=== PATIENT | male | born 1985 | race Caucasian/White ===

== ENCOUNTER 2017-02-08 18:18 | Emergency (ER) | payer BC ==
[~2017-02-08] VITALS: Ht 172.7 cm; Wt 66.8 kg
[~2017-02-08 18:18] MED LIST: ZITHTAB PO
[2017-02-08 18:34] VITALS: BP 147/78; PULSE 94; RESP 18; TEMP 97.5; O2SAT 98
[2017-02-08] MEDS ORDERED: SODIUM CHLOR 0.9% 1000 ML INJ 1,000 ML IV SCH (19:01)
[2017-02-08] MEDS ORDERED: SODIUM CHLORIDE 0.9% FLUSH 10 ML FLUSH IV FLUSH PRN (19:15)
[2017-02-08] MEDS ORDERED: ONDANSETRON HCL 4 MG/2 ML VIAL IVP ONE (19:15)
[2017-02-08 19:20] LABS: AUTOMATED NEUTROPHIL # 14.9 TH/MM3 (1.8-7.7); BASOPHIL # 0.1 TH/MM3 (0-0.2); BASOPHIL % 0.3 % (0.0-2.0); EOSINOPHIL % 0.2 % (0.0-4.0); HEMATOCRIT 49.2 % (39.0-51.0); LYMPH % 7.3 % (9.0-44.0); LYMPHOCYTE # 1.3 TH/MM3 (1.0-4.8); MEAN CELL VOLUME 85.5 FL (80.0-100.0); MEAN CORPUSCULAR HEMOGLOBIN 29.4 PG (27.0-34.0); MEAN CORPUSCULAR HGB CONC 34.3 % (32.0-36.0); NEUT % 87.2 % (16.0-70.0); PLATELET COUNT 264 TH/MM3 (150-450); RED BLOOD COUNT 5.75 MIL/MM3 (4.50-5.90); RED CELL DISTRIBUTION WIDTH 12.4 % (11.6-17.2); WHITE BLOOD COUNT 17.1 TH/MM3 (4.0-11.0)
[2017-02-08 19:25] LABS: HEMO FLAGS DIFF FINAL
[2017-02-08 19:27] LABS: CHLORIDE 103 MEQ/L (98-107); POTASSIUM 3.7 MEQ/L (3.5-5.1); SODIUM (NA) 139 MEQ/L (136-145)
[2017-02-08 19:31] LABS: ANION GAP 11 MEQ/L (5-15); BICARBONATE 25.4 MEQ/L (21.0-32.0); BLOOD UREA NITROGEN 15 MG/DL (7-18)
[2017-02-08 19:34] LABS: ALT (GPT) 28 U/L (12-78); AST (GOT) 24 U/L (15-37)
[2017-02-08 19:35] LABS: GLOMERULAR FILTRATION RATE 70 ML/MIN (>89)
[2017-02-08 19:36] LABS: TOTAL BILIRUBIN ADULT 1.9 MG/DL (0.2-1.0)
[2017-02-08 19:37] LABS: ALKALINE PHOSPHATASE 71 U/L (45-117)
[2017-02-08] MEDS ORDERED: KETOROLAC TROMETHAMINE 30 MG/ML (IVP) VIAL IV PUSH ONE (20:15)
[2017-02-08] MEDS ORDERED: CLAR10CA3 PO (20:57)
[2017-02-08] MEDS ORDERED: ZOFR4TAB3 SL (20:57)
[2017-02-08] MEDS ORDERED: CEPH-460 PO (20:57)
--- NOTE | 2017-02-08 20:57 | PD ---
HPI Chief Complaint: GI Complaint Time Seen by Provider: 19:00 Travel History International Travel<30 days: No Contact w/Intl Traveler<30days: No Traveled to known affect area: No History of Present Illness HPI Patient 31-year-old male presents emergency Department with nausea and vomiting since this afternoon. Patient had been complaining of sore throat and facial pain that his allergies were acting up and has been swallowing a lot of mucus and started with nausea vomiting and diarrhea this afternoon. This is nonbloody and nonbilious. He is denying any fevers. He has not had any abdominal pain. He stated that he took some improvements and Sudafed for his sinus symptoms and was unable to keep the Sudafed down. Symptoms are moderate, gradually worsening. PFSH Past Medical History Hx Anticoagulant Therapy: No Cardiovascular Problems: No Chemotherapy: No Cerebrovascular Accident: No Diabetes: No Diminished Hearing: No Headaches: Yes Respiratory: No Migraines: Yes ?: Not Past Surgical History Hysterectomy: No Social History Alcohol Use: No Tobacco Use: No Substance Use: No Allergies-Medications (Allergen,Severity, Reaction): Coded Allergies: No Known Allergies (Verified , 02/08/13) Reported Meds & Prescriptions Reported Meds & Active Scripts Active Zofran Odt (Ondansetron Odt) 4 Mg Tab 4 Mg SL Q6HR PRN Claritin (Loratadine) 10 Mg Cap 10 Mg PO DAILY 30 Days Keflex (Cephalexin) 500 Mg Cap 500 Mg PO Q6H 7 Days Review of Systems Except as stated in HPI: all other systems reviewed are Neg Physical Exam Narrative GENERAL: Well-developed well-nourished no distress. Actively retching in the emergency department SKIN: Focused skin assessment warm/dry. HEAD: Atraumatic. Normocephalic. EYES: Pupils equal and round. No scleral icterus. No injection or drainage. ENT: No nasal bleeding or discharge. Mucous membranes pink and moist. TMs clear bilaterally, oropharynx clear and moist. NECK: Trachea midline. No JVD. CARDIOVASCULAR: Regular rate and rhythm. No murmur appreciated. RESPIRATORY: No accessory muscle use. Clear to auscultation. Breath sounds equal bilaterally. GASTROINTESTINAL: Abdomen soft, non-tender, nondistended. Hepatic and splenic margins not palpable. MUSCULOSKELETAL: No obvious deformities. No clubbing. No cyanosis. No edema. NEUROLOGICAL: Awake and alert. No obvious cranial nerve deficits. Motor grossly within normal limits. Normal speech. PSYCHIATRIC: Appropriate mood and affect; insight and judgment normal. Data Data Last Documented VS Vital Signs Date Time Temp Pulse Resp B/P (MAP) Pulse Ox O2 Delivery O2 Flow Rate FiO2 02/08/17 18:34 97.5 94 18 147/78 (101) 98 Orders Orders Complete Blood Count With Diff (02/08/17 19:01) Comprehensive Metabolic Panel (02/08/17 19:01) Iv Access Insert/Monitor (02/08/17 19:01) Ecg Monitoring (02/08/17 19:01) Oximetry (02/08/17 19:01) Ondansetron Inj (Zofran Inj) (02/08/17 19:15) Sodium Chlor 0.9% 1000 Ml Inj (Ns 1000 M (02/08/17 19:01) Sodium Chloride 0.9% Flush (Ns Flush) (02/08/17 19:15) Ketorolac Inj (Toradol Inj) (02/08/17 20:15) Urinalysis - C+S If Indicated (02/08/17 20:40) Labs Laboratory Tests Test 02/08/17 19:10 02/08/17 20:50 White Blood Count 17.1 TH/MM3 Red Blood Count 5.75 MIL/MM3 Hemoglobin 16.9 GM/DL Hematocrit 49.2 % Mean Corpuscular Volume 85.5 FL Mean Corpuscular Hemoglobin 29.4 PG Mean Corpuscular Hemoglobin Concent 34.3 % Red Cell Distribution Width 12.4 % Platelet Count 264 TH/MM3 Mean Platelet Volume 9.8 FL Neutrophils (%) (Auto) 87.2 % Lymphocytes (%) (Auto) 7.3 % Monocytes (%) (Auto) 5.0 % Eosinophils (%) (Auto) 0.2 % Basophils (%) (Auto) 0.3 % Neutrophils # (Auto) 14.9 TH/MM3 Lymphocytes # (Auto) 1.3 TH/MM3 Monocytes # (Auto) 0.9 TH/MM3 Eosinophils # (Auto) 0.0 TH/MM3 Basophils # (Auto) 0.1 TH/MM3 CBC Comment DIFF FINAL Differential Comment Blood Urea Nitrogen 15 MG/DL Creatinine 1.20 MG/DL Random Glucose 119 MG/DL Total Protein 8.6 GM/DL Albumin 4.9 GM/DL Calcium Level 9.9 MG/DL Alkaline Phosphatase 71 U/L Aspartate Amino Transf (AST/SGOT) 24 U/L Alanine Aminotransferase (ALT/SGPT) 28 U/L Total Bilirubin 1.9 MG/DL Sodium Level 139 MEQ/L Potassium Level 3.7 MEQ/L Chloride Level 103 MEQ/L Carbon Dioxide Level 25.4 MEQ/L Anion Gap 11 MEQ/L Estimat Glomerular Filtration Rate 70 ML/MIN Urine Color YELLOW Urine Turbidity CLEAR Urine pH 6.0 Urine Specific Elsie 1.017 Urine Protein NEG mg/dL Urine Glucose (UA) NEG mg/dL Urine Ketones 80 OR GREATER mg/dL Urine Occult Blood NEG Urine Nitrite NEG Urine Bilirubin NEG Urine Leukocyte Esterase NEG Urine RBC 0-2 /hpf Urine WBC 0-2 /hpf Urine Squamous Epithelial Cells 0-5 /hpf Urine Bacteria NONE /hpf Microscopic Urinalysis Comment CULT NOT INDICATED MDM Medical Decision Making Medical Screen Exam Complete: Yes Emergency Medical Condition: Yes Differential Diagnosis Sinusitis, gastritis, gastric enteritis, dehydration, acute abdomen unlikely. Narrative Course Patient roomed emergency department, basic labs do show an elevation of white blood cell count 17,000, could be due to emargination secondary to retching. He is completely benign abdomen here. Was given Zofran and Toradol for subsequent complaint of headache. His interjects the patient does have a history of headaches which have caused some nausea the past. He is feeling much better after 2 L of fluid as well as Zofran and Toradol. Discussed with him could be a sinusitis versus a gastroenteritis as diarrhea cannot be explained by sinusitis. We'll cover with Keflex antibiotics. Discussed return to ED criteria follow-up with a primary care physician. Aggressive hydration. Diagnosis Primary Impression: Sinusitis Qualified Codes: J01.01 - Acute recurrent maxillary sinusitis Additional Impression: Nausea vomiting and diarrhea Med/Other Pt SpecificInfo: Prescription(s) given Scripts Ondansetron Odt (Zofran Odt) 4 Mg Tab 4 MG SL Q6HR Y for Nausea/Vomiting, #20 TAB 0 Refills Prov: Gaetano Dean MD 02/08/17 Loratadine (Claritin) 10 Mg Cap 10 MG PO DAILY for Allergy Management for 30 Days, #30 CAP 0 Refills Prov: Gaetano Dean MD 02/08/17 Cephalexin (Keflex) 500 Mg Cap 500 MG PO Q6H for Infection for 7 Days, #28 CAP 0 Refills Prov: Gaetano Dean MD 02/08/17 Disposition: 01 DISCHARGE HOME Condition: Stable Gaetano Dean MD Feb 08, 2017 20:57
[2017-02-08 21:01] LABS: BLOOD, URINE NEG (NEG); GLUCOSE,URINE NEG (NEG); KETONE, URINE 80 OR GREATER mg/dL (NEG); NITRITE,URINE NEG (NEG)
[2017-02-08 21:02] LABS: URINE COLOR YELLOW (YELLW/STRAW)
[2017-02-08 21:09] LABS: RBC, URINE 0-2 /hpf (0-3); SQUAMOUS EPITHELIAL CELL URINE 0-5 /hpf (0-5); WBC, URINE 0-2 /hpf (0-5)
[2017-02-08 21:10] LABS: COMMENT (UR) CULT NOT INDICATED; CULTURE IF INDICATED CULT NOT INDICATED
== END 2017-02-08 22:40 | disposition home or self-care (01) ==
LOC: PHED 18:18
DX: J01.01 Acute recurrent maxillary sinusitis (principal); R11.2 Nausea with vomiting, unspecified; R19.7 Diarrhea, unspecified; D72.829 Elevated white blood cell count, unspecified; R07.0 Pain in throat; Z86.69 Personal history of other diseases of the nervous system and sense organs
CPT/HCPCS: 80053; 81001; 85025; 96361; 96374; 96375; 99284; J1885; J2405; J7030